=== PATIENT | male | born 1990 | race Two or more races ===

== ENCOUNTER 2019-12-19 15:53 | Emergency (ER) | payer OTHER ==
[2019-12-19 16:02] VITALS: BP 175/105
--- NOTE | 2019-12-19 16:19 | PHYS DOC ---
Past History Past Medical History: Depression Past Surgical History: Other Additional Past Surgical Histo: ACL repair Alcohol Use: None Drug Use: None Adult General Chief Complaint Chief Complaint: FOREIGN BODY HPI HPI 29-year-old male presents with concern of foreign body ingestion. The patient was given a bag of chips when yesterday and thinks it might have broken razor blade in it. He noticed some fine cuts on his fingers after eating the chips and thinks that these cuts were result of the razor blade. There was no razor blade in the bag of chips that he thinks he swallowed it. This happened yesterday evening. Patient had no oral vomiting. He has not been coughing up any blood. He now has some epigastric discomfort and he is very worried about internal bleeding. Review of Systems Review of Systems Constitutional: Denies fever or chills [] Eyes: Denies change in visual acuity, redness, or eye pain [] HENT: Denies nasal congestion or sore throat [] Respiratory: Denies cough or shortness of breath [] Cardiovascular: No additional information not addressed in HPI [] GI: Gastric abdominal pain. Denie nausea, vomiting, bloody stools or diarrhea [] : Denies dysuria or hematuria [] Musculoskeletal: Denies back pain or joint pain [] Integument: Denies rash or skin lesions [] Neurologic: Denies headache, focal weakness or sensory changes [] Endocrine: Denies polyuria or polydipsia [] All other systems were reviewed and found to be within normal limits, except as documented in this note. Allergies Allergies Allergies Coded Allergies Type Severity Reaction Last Updated Verified No Known Drug Allergies 12/19/19 No Physical Exam Physical Exam Constitutional: Well developed, well nourished, no acute distress, non-toxic appearance. [] HENT: Normocephalic, atraumatic, bilateral external ears normal, oropharynx moist, no oral exudates, nose normal. [] Eyes: PERRLA, EOMI, conjunctiva normal, no discharge. [] Neck: Normal range of motion, no tenderness, supple, no stridor. [] Cardiovascular:Heart rate regular rhythm, no murmur [] Lungs & Thorax: Bilateral breath sounds clear to auscultation [] Abdomen: Bowel sounds normal, soft, no tenderness, no masses, no pulsatile masses. [] Skin: Warm, dry, no erythema, no rash. [] Back: No tenderness, no CVA tenderness. [] Extremities: No tenderness, no cyanosis, no clubbing, ROM intact, no edema. [] Neurologic: Alert and oriented X 3, normal motor function, normal sensory function, no focal deficits noted. [] Psychologic: Affect normal, judgement normal, mood nervous. [] Current Patient Data Vital Signs Vital Signs Date Time Temp Pulse Resp B/P (MAP) Pulse Ox O2 Delivery O2 Flow Rate FiO2 12/19/19 16:02 97.7 108 18 98 Room Air EKG EKG [] Radiology/Procedures Radiology/Procedures [] Course & Med Decision Making Course & Med Decision Making Pertinent Labs and Imaging studies reviewed. (See chart for details) The patient's chest x-ray and KUB are negative for radiopaque foreign bodies. I do not believe that he swallowed a razor blade. He is stable for discharge at this time. [] Dragon Disclaimer Dragon Disclaimer This electronic medical record was generated, in whole or in part, using a voice recognition dictation system. Departure Departure: Impression: Primary Impression: Abdominal pain Disposition: HOME, SELF-CARE Condition: STABLE Referrals: PCP,NO (PCP) Patient Instructions: Abdominal Pain, [id number] RAMSEY RICHARDS DO Dec 19, 2019 16:19
--- NOTE | 2019-12-19 16:53 | RAD ---
CHEST PA LATERAL, KUB History: Abdominal pain, bloody stools. Possibly swallowed a razor blade. Comparison: None. Findings: Frontal and lateral views of chest were obtained. The cardiomediastinal silhouette is normal. Pulmonary vasculature is normal. The lungs are clear. No pleural effusion or pneumothorax is seen. There is no acute bone abnormality. Frontal view of the abdomen was obtained. Moderate quantity of stool in the colon is present. No bowel obstruction. No suspicious abdominal calcification. There is no radiopaque foreign body identified within the chest or abdomen corresponding to a razor blade or other suspicious object. IMPRESSION: No acute cardiopulmonary process. No radiopaque foreign body. Electronically signed by: Remi Reid MD (12/19/2019 4:50 PM) [facility]
== END 2019-12-19 17:03 | disposition home or self-care (01) ==
LOC: ER 15:53
DX: R10.13 Epigastric pain (principal); Z71.1 Person with feared health complaint in whom no diagnosis is made; F32.9 Major depressive disorder, single episode, unspecified; Z98.890 Other specified postprocedural states
CPT/HCPCS: 71046; 74018; 99284

== ENCOUNTER 2020-01-01 17:12 | Emergency (ER) | payer OTHER ==
[~2020-01-01] VITALS: Ht 193 cm; Wt 93.2 kg
[2020-01-01 17:20] VITALS: BP 166/74
[2020-01-01] MEDS ORDERED: PRED20TA PO (17:44)
[2020-01-01] MEDS ORDERED: diphenhydrAMINE HCL 25 MG CAPSULE PO ONE (17:45)
[2020-01-01] MEDS ORDERED: predniSONE 20 MG TABLET PO ONE (17:45)
[2020-01-01] MEDS ORDERED: FAMOTIDINE 20 MG TABLET PO ONE (17:45)
--- NOTE | 2020-01-01 17:45 | PHYS DOC ---
Past History Past Medical History: No Pertinent History, Depression Past Surgical History: Other Additional Past Surgical Histo: ACL repair Alcohol Use: None Drug Use: None Adult General Chief Complaint Chief Complaint: SKIN PROBLEM HPI HPI Patient is a 29-year-old male who presents to the emergency department for evaluation. He states that about 60 minutes prior to arrival he ate some chicken, and broke out in a pruritic urticarial rash on his trunk and extremities. He has had similar reactions in the past. He denies any dizziness or lightheadedness, or any shortness of breath. He does not know what he is allergic to. He has no other complaints or symptoms at this time. Review of Systems Review of Systems Constitutional: Denies fever or chills [] Eyes: Denies change in visual acuity, redness, or eye pain [] HENT: Denies nasal congestion or sore throat [] Respiratory: Denies cough or shortness of breath, or voice changes. [] Cardiovascular: No additional information not addressed in HPI [] GI: Denies abdominal pain, nausea, vomiting, bloody stools or diarrhea [] Allergies Allergies Allergies Coded Allergies Type Severity Reaction Last Updated Verified No Known Drug Allergies 12/19/19 No Physical Exam Physical Exam PHYSICAL EXAM: CONSTITUTIONAL: Well developed, well nourished HEAD: normocephalic, atraumatic EENT: PERRL, EOMI. Conjunctivae normal color, sclerae non-icteric; moist mucous membranes. The airway is patent. There is no stridor. Voice is normal. NECK: Supple, non-tender; no meningismus. LUNGS: Lungs CTA, breathing even and unlabored. Normal air movement. HEART: Regular rate and rhythm, no murmur CHEST: No deformity; non-tender ABDOMEN: The abdomen is soft, and non-tender, no masses or bruits. EXTREM: Normal ROM; no deformity, no calf tenderness. Normal pulses palpable in all extremities. There is no pedal edema. SKIN: There is a scattered fine urticarial rash on the upper extremities, and upper trunk, no other rash; no diaphoresis NEURO: Alert; normal speech and cognition; CN's grossly intact; strength grossly intact without focal deficit. BACK: No CVA TTP. Current Patient Data Vital Signs Vital Signs Date Time Temp Pulse Resp B/P (MAP) Pulse Ox O2 Delivery O2 Flow Rate FiO2 01/01/20 17:20 97.8 69 18 166/74 (104) 99 Room Air EKG EKG [] Radiology/Procedures Radiology/Procedures [] Course & Med Decision Making Course & Med Decision Making Discussed home care plan with the patient, the need for close follow-up, and re turn precautions. Ebony Disclaimer Dragon Disclaimer This electronic medical record was generated, in whole or in part, using a voice recognition dictation system. Departure Departure: Impression: Primary Impression: Allergic reaction Disposition: HOME, SELF-CARE Condition: STABLE Patient Instructions: Allergies, Generic Additional Instructions: Take Benadryl 25-50 mg every 6 hours for the next 3 days. Use caution as this may cause sedation. Additionally, take Pepcid AC 10 mg twice daily for the next 3 days. This medicine is available [id number]. Use the prescribed steroids as instructed. Return to medical care for any new, or worsening symptoms, the development of shortness of breath, new rash, dizziness lightheadedness, fevers, or any other new, or concerning symptoms. Scripts Prednisone (PREDNISONE) 20 Mg Tablet 40 MG PO DAILY for - for 5 Days, #10 TAB Prov: JE QUICK MD 01/01/20 EJ QUICK MD Jan 01, 2020 17:45
== END 2020-01-01 17:54 | disposition home or self-care (01) ==
LOC: ER 17:12
DX: T78.1XXA Other adverse food reactions, not elsewhere classified, initial encounter (principal); R21 Rash and other nonspecific skin eruption; F32.9 Major depressive disorder, single episode, unspecified; Z98.890 Other specified postprocedural states; X58.XXXA Exposure to other specified factors, initial encounter
CPT/HCPCS: 99284; J7512; Q0163

== ENCOUNTER 2020-01-24 01:52 | Emergency (ER) | payer OTHER ==
[~2020-01-24] VITALS: Ht 193 cm; Wt 93.2 kg
[2020-01-24 01:52] VITALS: BP 108/62
[~2020-01-24 01:52] MED LIST: PRED20TA PO
[2020-01-24] MEDS ORDERED: ONDANSETRON ODT 4 MG TAB.RAPDIS PO ONE (02:00)
[2020-01-24] MEDS ORDERED: ONDA4TAB12 PO (02:06)
--- NOTE | 2020-01-24 02:07 | PHYS DOC ---
Past History Past Medical History: No Pertinent History, Depression Past Surgical History: Other Additional Past Surgical Histo: ACL repair Alcohol Use: None Drug Use: None Adult General Chief Complaint Chief Complaint: NAUSEA/VOMITING/DIARRHEA HPI HPI 29-year-old male presents from the [facility] with vomiting. The patient was sleeping and he woke up and had an episode of vomiting. He did not want to come to the hospital, but the [facility] wanted him to come here and get something for his vomiting. The patient tells me that he does not want to do la bs and further workup if it's not necessary. He doesn't feel especially bad, just had some vomiting. He denies fever or chills. He denies abdominal pain, diarrhea, chest pain, shortness breath, cough. Review of Systems Review of Systems Constitutional: Denies fever or chills [] Eyes: Denies change in visual acuity, redness, or eye pain [] HENT: Denies nasal congestion or sore throat [] Respiratory: Denies cough or shortness of breath [] Cardiovascular: No additional information not addressed in HPI [] GI: nausea, vomiting. Denies abdominal pain, bloody stools or diarrhea [] : Denies dysuria or hematuria [] Musculoskeletal: Denies back pain or joint pain [] Integument: Denies rash or skin lesions [] Neurologic: Denies headache, focal weakness or sensory changes [] Endocrine: Denies polyuria or polydipsia [] All other systems were reviewed and found to be within normal limits, except as documented in this note. Current Medications Current Medications Current Medications Medications (Trade) Dose Ordered Sig/[facility] Start Time Stop Time Status Last Admin Dose Admin Ondansetron HCl (Zofran Odt) 4 mg 1X ONCE 01/24/20 02:00 01/24/20 02:01 UNV Allergies Allergies Allergies Coded Allergies Type Severity Reaction Last Updated Verified No Known Drug Allergies 12/19/19 No Physical Exam Physical Exam Constitutional: Well developed, well nourished, no acute distress, non-toxic appearance. [] HENT: Normocephalic, atraumatic, bilateral external ears normal, oropharynx moist, no oral exudates, nose normal. [] Eyes: PERRLA, EOMI, conjunctiva normal, no discharge. [] Neck: Normal range of motion, no tenderness, supple, no stridor. [] Cardiovascular: Heart rate regular rhythm, no murmur [] Lungs & Thorax: Bilateral breath sounds clear to auscultation [] Abdomen: Bowel sounds normal, soft, no tenderness, no masses, no pulsatile masses. [] Skin: Warm, dry, no erythema, no rash. [] Back: No tenderness, no CVA tenderness. [] Extremities: No tenderness, no cyanosis, no clubbing, ROM intact, no edema. [] Neurologic: Alert and oriented X 3, normal motor function, normal sensory function, no focal deficits noted. [] Psychologic: Affect normal, judgement normal, mood normal. [] EKG EKG [] Radiology/Procedures Radiology/Procedures [] Course & Med Decision Making Course & Med Decision Making Pertinent Labs and Imaging studies reviewed. (See chart for details) The patient only wants simple treatment for his vomiting. He was reported to have vomited on his clothing and someone at the [facility] is concerned he might have hit his head. He was reported to have a UDS done there that was negative. I will give the patient 4 mg of Zofran ODT and a by mouth challenge of fluids. We offered to do a CT scan of the patient's head and he has declined. He does not believe it's necessary. He denies any headache or altered sensation. He is the patient if he doesn't want a bunch of testing, I don't see evidence that makes it necessary at this time. The patient was able to keep down fluids. He is stable for discharge at this time. [] Dragon Disclaimer Dragon Disclaimer This electronic medical record was generated, in whole or in part, using a voice recognition dictation system. Departure Departure: Impression: Primary Impression: Nausea & vomiting Disposition: HOME, SELF-CARE Condition: STABLE Referrals: PCP,NO (PCP) Patient Instructions: Nausea and Vomiting, [id number] Scripts Ondansetron (ONDANSETRON ODT) 4 Mg Tab.rapdis 1 TAB PO PRN Q6-8HRS PRN for VOMITING, #16 TAB Prov: RAMSEY RICHARDS DO 01/24/20 Problem Qualifiers Primary Impression: Nausea & vomiting Vomiting type: unspecified Vomiting Intractability: non-intractable Qualified Codes: R11.2 - Nausea with vomiting, unspecified RAMSEY RICHARDS DO Jan 24, 2020 02:06
== END 2020-01-24 02:34 | disposition home or self-care (01) ==
LOC: ER 01:52
DX: R11.2 Nausea with vomiting, unspecified (principal)
CPT/HCPCS: 99283; Q0162

== ENCOUNTER 2020-05-04 06:45 | Emergency (ER) | payer SELFPAY ==
[~2020-05-04] VITALS: Ht 182.9 cm; Wt 91.4 kg
[~2020-05-04 06:45] MED LIST changes: +ONDA4TAB12 PO
[2020-05-04] MEDS ORDERED: ONDANSETRON PF 4 MG/2 ML VIAL. ONE (07:00)
[2020-05-04] MEDS ORDERED: IV NORMAL SALINE 1,000ML 1,000 ML IV SCH (07:30)
[2020-05-04] MEDS ORDERED: ONDANSETRON PF 4 MG/2 ML VIAL. IVP ONE (07:30)
[2020-05-04 07:33] LABS: BASO # 0.1 x10^3/uL (0.0-0.2); BASO % 1 % (0-3); EOS # 0.1 x10^3/uL (0.0-0.7); EOS % 2 % (0-3); HEMATOCRIT 47.4 % (39.0-53.0); HEMOGLOBIN 16.1 g/dL (13.0-17.5); LYMPH # 1.4 x10^3/uL (1.0-4.8); LYMPH % 29 % (24-48); MEAN CORPUSCULAR HEMOGLOBIN 30 pg (25-35); MEAN CORPUSCULAR HGB CONC 34 g/dL (31-37); MEAN CORPUSCULAR VOLUME 89 fL (79-100); MONO # 0.7 x10^3/uL (0.0-1.1); MONO % 15 % (0-9); NEUT # 2.6 x10^3uL (1.8-7.7); NEUT % 53 % (31-73); PLATELET COUNT 291 x10^3/uL (140-400); RED BLOOD COUNT 5.33 x10^6/uL (4.30-5.70); RED CELL DISTRIBUTION WIDTH 14.4 % (11.5-14.5); WHITE BLOOD COUNT 4.8 x10^3/uL (4.0-11.0)
[2020-05-04 07:35] LABS: CALCIUM 9.1 mg/dL (8.5-10.1); GFR 88.3; POTASSIUM 4.1 mmol/L (3.5-5.1)
[2020-05-04 07:41] LABS: ALBUMIN/GLOBULIN RATIO 1.3 (1.0-1.7); TOTAL BILIRUBIN 0.7 mg/dL (0.2-1.0); TOTAL PROTEIN 7.2 g/dL (6.4-8.2)
[2020-05-04 07:55] VITALS: BP 133/78
[2020-05-04] MEDS ORDERED: IOHEXOL 300 MG/ML 75 ML VIAL. IV ONE (08:00)
--- NOTE | 2020-05-04 08:12 | PHYS DOC ---
Past History Past Medical History: No Pertinent History, Depression Past Surgical History: Other Additional Past Surgical Histo: ACL repair Alcohol Use: None Drug Use: None General Adult EDM: Chief Complaint: WEAKNESS/GENERALIZED HPI: HPI: Patient is a 29-year-old male who presents with complaint of upper abdominal pain that started a few days ago. Patient states that since that time he has had difficulty eating because every time he tries to eat he gets sick to his stomach and develops pain in the epigastric region. He states that nothing has been improving the pain. He states that symptoms are worsened with eating. He denies any fever. He denies any radiation of the pain. He has had no chest pain or shortness of breath. He also denies cough. Patient rates pain at an 8 out of 10. [] Review of Systems: Review of Systems: Constitutional: Denies fever or chills Respiratory: Denies cough or shortness of breath Cardiovascular: Denies chest pain or edema GI: Complains of upper abdominal pain with nausea and vomiting. Denies diarrhea Neurologic: Denies headache, focal weakness or sensory changes A full 10 point review of systems has been reviewed and is otherwise negative. Heart Score: Risk Factors: Risk Factors: DM, Current or recent (<one month) smoker, HTN, HLP, family history of CAD, obesity. Risk Scores: Score 0 - 3: 2.5% MACE over next 6 weeks - Discharge Home Score 4 - 6: 20.3% MACE over next 6 weeks - Admit for Clinical Observation Score 7 - 10: 72.7% MACE over next 6 weeks - Early Invasive Strategies Current Medications: Current Meds: Current Medications Medications (Trade) Dose Ordered Sig/[facility] Start Time Stop Time Status Last Admin Dose Admin Iohexol (Omnipaque 300 Mg/ml) 75 ml 1X ONCE 05/04/20 08:00 05/04/20 08:08 DC Ondansetron HCl (Zofran) 4 mg STK-MED ONCE 05/04/20 07:00 05/04/20 07:00 DC Sodium Chloride 1,000 ml @ 1,000 mls/hr Q1H 05/04/20 07:30 05/04/20 08:29 05/04/20 07:19 1,000 MLS/HR Allergies: Allergies: Allergies Coded Allergies Type Severity Reaction Last Updated Verified No Known Drug Allergies 1/20/20 No Physical Exam: PE: Constitutional: Well developed, well nourished, no acute distress, non-toxic appearance. [] HENT: Normocephalic, atraumatic, bilateral external ears normal, oropharynx moist, no oral exudates, nose normal. [] Eyes: PERRLA, EOMI, conjunctiva normal, no discharge. [] Neck: Normal range of motion, no tenderness, supple. [] Cardiovascular: Regular rate and rhythm [] Lungs & Thorax: Bilateral breath sounds clear to auscultation [] Abdomen: Bowel sounds normal, soft, with mild epigastric tenderness. [] Skin: Warm, dry, no erythema, no rash. [] Extremities: No tenderness, no cyanosis, no clubbing, ROM intact, no edema. [] Neurologic: Alert and oriented X 3, no focal deficits noted. [] Current Patient Data: Labs: Laboratory Tests Test 05/04/20 07:00 White Blood Count 4.8 x10^3/uL (4.0-11.0) Red Blood Count 5.33 x10^6/uL (4.30-5.70) Hemoglobin 16.1 g/dL (13.0-17.5) Hematocrit 47.4 % (39.0-53.0) Mean Corpuscular Volume 89 fL (79-100) Mean Corpuscular Hemoglobin 30 pg (25-35) Mean Corpuscular Hemoglobin Concent 34 g/dL (31-37) Red Cell Distribution Width 14.4 % (11.5-14.5) Platelet Count 291 x10^3/uL (140-400) Neutrophils (%) (Auto) 53 % (31-73) Lymphocytes (%) (Auto) 29 % (24-48) Monocytes (%) (Auto) 15 % (0-9) H Eosinophils (%) (Auto) 2 % (0-3) Basophils (%) (Auto) 1 % (0-3) Neutrophils # (Auto) 2.6 x10^3uL (1.8-7.7) Lymphocytes # (Auto) 1.4 x10^3/uL (1.0-4.8) Monocytes # (Auto) 0.7 x10^3/uL (0.0-1.1) Eosinophils # (Auto) 0.1 x10^3/uL (0.0-0.7) Basophils # (Auto) 0.1 x10^3/uL (0.0-0.2) Sodium Level 136 mmol/L (136-145) Potassium Level 4.1 mmol/L (3.5-5.1) Chloride Level 100 mmol/L (98-107) Carbon Dioxide Level 30 mmol/L (21-32) Anion Gap 6 (6-14) Blood Urea Nitrogen 9 mg/dL (8-26) Creatinine 1.0 mg/dL (0.7-1.3) Estimated GFR (Cockcroft-Gault) 88.3 BUN/Creatinine Ratio 9 (6-20) Glucose Level 121 mg/dL (70-99) H Calcium Level 9.1 mg/dL (8.5-10.1) Total Bilirubin 0.7 mg/dL (0.2-1.0) Aspartate Amino Transferase (AST) 211 U/L (15-37) H Alanine Aminotransferase (ALT) 71 U/L (16-63) H Alkaline Phosphatase 72 U/L (46-116) Total Protein 7.2 g/dL (6.4-8.2) Albumin 4.0 g/dL (3.4-5.0) Albumin/Globulin Ratio 1.3 (1.0-1.7) Lipase 95 U/L (73-393) Vital Signs: Vital Signs Date Time Temp Pulse Resp B/P (MAP) Pulse Ox O2 Delivery O2 Flow Rate FiO2 05/04/20 07:55 62 16 133/78 (96) 96 Room Air 05/04/20 06:54 97.3 EKG: EKG: [] Radiology/Procedures: Radiology/Procedures: [] Impressions: PROCEDURE: CT ABD PELV W/ IV CONTRST ONLY PQRS Compliance Statement: One or more of the following individualized dose reduction techniques were utilized for this examination: 1. Automated exposure control 2. Adjustment of the mA and/or kV according to patient size 3. Use of iterative reconstruction technique CT abdomen/pelvis with contrast 05/04/2020 7:48 AM INDICATION: Abdominal pain COMPARISON: None available TECHNIQUE: Multiple axial CT images of the abdomen and pelvis were obtained after the intravenous administration of nonionic contrast. Coronal and sagittal reformats are provided. FINDINGS: Lung bases are clear. Heart size within normal limits. Hypoattenuation along the fissure of the ligamentum teres is suggestive of focal fatty infiltration. Otherwise, the liver is normal. Spleen, bilateral adrenal glands, pancreas and gallbladder are normal in appearance. Abdominal aorta is normal in course and caliber. No pathologically enlarged lymph nodes are identified. Simple superior pole right renal cyst measures 1.6 cm. No suspicious renal mass. No hydronephrosis. Small and large bowel are normal in caliber. There is no evidence for bowel obstruction. There are no pericolonic inflammatory changes. A normal, nondilated appendix is visualized without adjacent inflammatory changes. Prostate seminal vesicles are normal in appearance. Urinary bladder is within normal limits given degree of distention. Small fat-containing left inguinal hernia. Right central disc extrusion is identified at L5-S1 with mild narrowing of the right lateral recess. IMPRESSION: 1. No acute abnormalities identified in abdomen and pelvis. 2. Right central disc extrusion at L5-S1 with mild narrowing of the right lateral recess. Electronically signed by: Sonido Alfaro MD (05/04/2020 8:45 AM) [id number] DICTATED AND SIGNED BY: SONIDO ALFARO MD DATE: 05/04/20844 CC: BRADLEY TREVINO Jr. DO; PCP,NO ~ Course & Med Decision Making: Course & Med Decision Making Pertinent Labs and Imaging studies reviewed. (See chart for details) [] Dragon Disclaimer: Ebony Disclaimer: This electronic medical record was generated, in whole or in part, using a voice recognition dictation system. Departure Departure: Impression: Primary Impression: Abdominal pain Qualified Codes: R10.13 - Epigastric pain Disposition: 01 HOME/RESIDENCE PRIOR TO ADM Condition: STABLE Referrals: PCP,NO (PCP) Patient Instructions: Abdominal Pain Scripts Famotidine (PEPCID) 20 Mg Tablet 1 TAB PO BID PRN for acid indigestion, #30 TAB Prov: BRADLEY TREVINO Jr. DO 05/04/20 Ondansetron (ONDANSETRON ODT) 4 Mg Tab.rapdis 1 TAB PO PRN Q6-8HRS PRN for NAUSEA, #12 TAB Prov: BRADLEY TREVINO Jr. DO 05/04/20 BRADLEY TREVINO Jr., DO May 04, 2020 08:12
--- NOTE | 2020-05-04 08:48 | RAD ---
PQRS Compliance Statement: One or more of the following individualized dose reduction techniques were utilized for this examination: 1. Automated exposure control 2. Adjustment of the mA and/or kV according to patient size 3. Use of iterative reconstruction technique CT abdomen/pelvis with contrast 05/04/2020 7:48 AM INDICATION: Abdominal pain COMPARISON: None available TECHNIQUE: Multiple axial CT images of the abdomen and pelvis were obtained after the intravenous administration of nonionic contrast. Coronal and sagittal reformats are provided. FINDINGS: Lung bases are clear. Heart size within normal limits. Hypoattenuation along the fissure of the ligamentum teres is suggestive of focal fatty infiltration. Otherwise, the liver is normal. Spleen, bilateral adrenal glands, pancreas and gallbladder are normal in appearance. Abdominal aorta is normal in course and caliber. No pathologically enlarged lymph nodes are identified. Simple superior pole right renal cyst measures 1.6 cm. No suspicious renal mass. No hydronephrosis. Small and large bowel are normal in caliber. There is no evidence for bowel obstruction. There are no pericolonic inflammatory changes. A normal, nondilated appendix is visualized without adjacent inflammatory changes. Prostate seminal vesicles are normal in appearance. Urinary bladder is within normal limits given degree of distention. Small fat-containing left inguinal hernia. Right central disc extrusion is identified at L5-S1 with mild narrowing of the right lateral recess. IMPRESSION: 1. No acute abnormalities identified in abdomen and pelvis. 2. Right central disc extrusion at L5-S1 with mild narrowing of the right lateral recess. Electronically signed by: Bernadette Alfaro MD (05/04/2020 8:45 AM) [id number]
[2020-05-04] MEDS ORDERED: FAMO-63 PO (08:54)
[2020-05-04] MEDS ORDERED: ONDA4TAB12 PO (08:54)
== END 2020-05-04 09:50 | disposition home or self-care (01) ==
LOC: ER 06:45
DX: R10.13 Epigastric pain (principal); R11.2 Nausea with vomiting, unspecified
CPT/HCPCS: 36415; 74177; 80053; 83690; 85025; 96361; 96374; 99285; J2405; J7030

== ENCOUNTER 2020-05-05 11:31 | Emergency (ER) | payer SELFPAY ==
[~2020-05-05] VITALS: Ht 182.9 cm; Wt 91.4 kg
[~2020-05-05 11:31] MED LIST changes: +FAMO-63 PO
[2020-05-05 11:47] VITALS: BP 147/97
[2020-05-05] MEDS ORDERED: IV NORMAL SALINE 1,000ML 1,000 ML IV SCH (11:49)
[2020-05-05] MEDS ORDERED: FAMOTIDINE 20 MG/2 ML VIAL IVP ONE (12:00)
[2020-05-05] MEDS ORDERED: ONDANSETRON PF 4 MG/2 ML VIAL. IVP ONE (12:00)
[2020-05-05] MEDS ORDERED: LIDO:MAALOX 1:1 20 ML SINGLE DOSE. PO ONE (12:00)
[2020-05-05 12:18] LABS: BASO % 1 % (0-3); EOS # 0.1 x10^3/uL (0.0-0.7); EOS % 2 % (0-3); HEMOGLOBIN 15.3 g/dL (13.0-17.5); LYMPH # 1.4 x10^3/uL (1.0-4.8); LYMPH % 30 % (24-48); MEAN CORPUSCULAR HEMOGLOBIN 31 pg (25-35); MEAN CORPUSCULAR HGB CONC 34 g/dL (31-37); MEAN CORPUSCULAR VOLUME 90 fL (79-100); MONO # 0.6 x10^3/uL (0.0-1.1); MONO % 12 % (0-9); NEUT # 2.6 x10^3uL (1.8-7.7); NEUT % 55 % (31-73); PLATELET COUNT 285 x10^3/uL (140-400); RED BLOOD COUNT 5.02 x10^6/uL (4.30-5.70); RED CELL DISTRIBUTION WIDTH 14.4 % (11.5-14.5); WHITE BLOOD COUNT 4.7 x10^3/uL (4.0-11.0)
[2020-05-05 12:22] LABS: CALCIUM 8.8 mg/dL (8.5-10.1); CREATININE 0.9 mg/dL (0.7-1.3); GFR 99.8; POTASSIUM 3.9 mmol/L (3.5-5.1)
[2020-05-05 12:28] LABS: ALBUMIN 3.8 g/dL (3.4-5.0); ALBUMIN/GLOBULIN RATIO 1.3 (1.0-1.7); TOTAL BILIRUBIN 0.5 mg/dL (0.2-1.0); TOTAL PROTEIN 6.8 g/dL (6.4-8.2)
--- NOTE | 2020-05-05 12:43 | PHYS DOC ---
Past History Past Medical History: No Pertinent History, Depression Past Surgical History: Other Additional Past Surgical Histo: ACL repair Alcohol Use: None Drug Use: None General Adult EDM: Chief Complaint: MULTIPLE COMPLAINTS HPI: HPI: Patient is a 29-year-old male who presents with complaint of continued upper abdominal pain. Patient was seen here for same complaint yesterday and reports that he has not seen any improvement in the pain. Patient does admit that he has not gone and filled his prescriptions at this time. Patient states that he has had some nausea but no vomiting. He denies any diarrhea. Patient rates pain is moderate. [] Review of Systems: Review of Systems: Constitutional: Denies fever or chills Respiratory: Denies cough or shortness of breath Cardiovascular: Denies chest pain or edema GI: Complains of upper abdominal pain without vomiting or diarrhea Neurologic: Denies headache, focal weakness or sensory changes A full 10 point review of systems has been reviewed and is otherwise negative. Heart Score: Risk Factors: Risk Factors: DM, Current or recent (<one month) smoker, HTN, HLP, family history of CAD, obesity. Risk Scores: Score 0 - 3: 2.5% MACE over next 6 weeks - Discharge Home Score 4 - 6: 20.3% MACE over next 6 weeks - Admit for Clinical Observation Score 7 - 10: 72.7% MACE over next 6 weeks - Early Invasive Strategies Current Medications: Current Meds: Current Medications Medications (Trade) Dose Ordered Sig/[facility] Start Time Stop Time Status Last Admin Dose Admin Famotidine (Pepcid Vial) 20 mg 1X ONCE 05/05/20 12:00 05/05/20 12:04 DC 05/05/20 12:00 20 MG Multi-Ingredient Mouthwash/Gargle (Gi Cocktail) 20 ml 1X ONCE 05/05/20 12:00 05/05/20 12:04 DC 05/05/20 12:00 20 ML Ondansetron HCl (Zofran) 4 mg 1X ONCE 05/05/20 12:00 05/05/20 12:04 DC 05/05/20 12:00 4 MG Sodium Chloride 1,000 ml @ 1,000 mls/hr Q1H 05/05/20 11:49 05/05/20 12:48 05/05/20 11:49 1,000 MLS/HR Allergies: Allergies: Allergies Coded Allergies Type Severity Reaction Last Updated Verified No Known Drug Allergies 12/19/19 No Physical Exam: PE: Constitutional: Well developed, well nourished, no acute distress, non-toxic appearance. [] HENT: Normocephalic, atraumatic, bilateral external ears normal, oropharynx moist, no oral exudates, nose normal. [] Eyes: PERRLA, EOMI, conjunctiva normal, no discharge. [] Neck: Normal range of motion, no tenderness, supple, no stridor. [] Cardiovascular: Regular rate and rhythm [] Lungs & Thorax: Bilateral breath sounds clear to auscultation [] Abdomen: Bowel sounds normal, soft, with mild epigastric tenderness. [] Skin: Warm, dry, no erythema, no rash. [] Extremities: No tenderness, no cyanosis, no clubbing, ROM intact, no edema. [] Neurologic: Alert and oriented X 3, no focal deficits noted. [] Current Patient Data: Labs: Laboratory Tests Test 05/05/20 12:05 White Blood Count 4.7 x10^3/uL (4.0-11.0) Red Blood Count 5.02 x10^6/uL (4.30-5.70) Hemoglobin 15.3 g/dL (13.0-17.5) Hematocrit 45.0 % (39.0-53.0) Mean Corpuscular Volume 90 fL (79-100) Mean Corpuscular Hemoglobin 31 pg (25-35) Mean Corpuscular Hemoglobin Concent 34 g/dL (31-37) Red Cell Distribution Width 14.4 % (11.5-14.5) Platelet Count 285 x10^3/uL (140-400) Neutrophils (%) (Auto) 55 % (31-73) Lymphocytes (%) (Auto) 30 % (24-48) Monocytes (%) (Auto) 12 % (0-9) H Eosinophils (%) (Auto) 2 % (0-3) Basophils (%) (Auto) 1 % (0-3) Neutrophils # (Auto) 2.6 x10^3uL (1.8-7.7) Lymphocytes # (Auto) 1.4 x10^3/uL (1.0-4.8) Monocytes # (Auto) 0.6 x10^3/uL (0.0-1.1) Eosinophils # (Auto) 0.1 x10^3/uL (0.0-0.7) Basophils # (Auto) 0.0 x10^3/uL (0.0-0.2) Sodium Level 139 mmol/L (136-145) Potassium Level 3.9 mmol/L (3.5-5.1) Chloride Level 102 mmol/L (98-107) Carbon Dioxide Level 30 mmol/L (21-32) Anion Gap 7 (6-14) Blood Urea Nitrogen 6 mg/dL (8-26) L Creatinine 0.9 mg/dL (0.7-1.3) Estimated GFR (Cockcroft-Gault) 99.8 BUN/Creatinine Ratio 7 (6-20) Glucose Level 104 mg/dL (70-99) H Calcium Level 8.8 mg/dL (8.5-10.1) Total Bilirubin 0.5 mg/dL (0.2-1.0) Aspartate Amino Transferase (AST) 198 U/L (15-37) H Alanine Aminotransferase (ALT) 76 U/L (16-63) H Alkaline Phosphatase 67 U/L (46-116) Total Protein 6.8 g/dL (6.4-8.2) Albumin 3.8 g/dL (3.4-5.0) Albumin/Globulin Ratio 1.3 (1.0-1.7) Lipase 87 U/L (73-393) Vital Signs: Vital Signs Date Time Temp Pulse Resp B/P (MAP) Pulse Ox O2 Delivery O2 Flow Rate FiO2 05/05/20 11:47 98.5 79 18 147/97 (114) 97 Room Air EKG: EKG: [] Radiology/Procedures: Radiology/Procedures: [] Course & Med Decision Making: Course & Med Decision Making Pertinent Labs and Imaging studies reviewed. (See chart for details) [] Dragon Disclaimer: Dragon Disclaimer: This electronic medical record was generated, in whole or in part, using a voice recognition dictation system. Departure Departure: Impression: Primary Impression: Upper abdominal pain Disposition: HOME/RESIDENCE PRIOR TO ADM Condition: STABLE Referrals: PCP,NO (PCP) Patient Instructions: Abdominal Pain Additional Instructions: Fill prescriptions that were prescribed yesterday and take as directed. Follow- up with primary care provider for further evaluation and management. Justification of Admission: Justification of Admission: Justification of Admission Dx: N/A BRADLEY TREVINO Jr. DO May 05, 2020 12:43
== END 2020-05-05 12:55 | disposition home or self-care (01) ==
LOC: ER 11:31
DX: R10.10 Upper abdominal pain, unspecified (principal); R10.13 Epigastric pain; R11.0 Nausea
CPT/HCPCS: 36415; 80053; 83690; 85025; 96374; 96375; 99284; J2405; J3490; J7030

== ENCOUNTER 2020-05-08 14:12 | Emergency (ER) | payer SELFPAY ==
[~2020-05-08] VITALS: Ht 182.9 cm; Wt 94.6 kg
[2020-05-08] MEDS ORDERED: IV NORMAL SALINE 1,000ML 1,000 ML IV SCH (14:25)
--- NOTE | 2020-05-08 14:55 | PHYS DOC ---
Past History Past Medical History: No Pertinent History, Depression Past Surgical History: Other Additional Past Surgical Histo: ACL repair Alcohol Use: None Drug Use: None General Adult EDM: Chief Complaint: ABDOMINAL PAIN HPI: HPI: Patient is a 29-year-old male who presents to the emergency department for ev aluation. He states that he was seen in the emergency department here 4 days ago for abdominal pain, and vomiting. He states his vomiting has stopped, but he is now having constipation and has not had a bowel movement in a few days. He reports intermittent abdominal cramps and feels that he is dehydrated. He has not had any fevers or chills. He has not had any dizziness or lig htheadedness. There are no alleviating or exacerbating factors to his symptoms otherwise. Notes and imaging tests, and lab results from his recent ER visit have been reviewed. Incidentally, the patient has tested positive for COVID-19, approximately 5 wee ks ago, but reportedly has recovered. Review of Systems: Review of Systems: Constitutional: Denies fever or chills Eyes: Denies change in visual acuity HENT: Denies nasal congestion or sore throat Respiratory: Denies cough or shortness of breath Cardiovascular: Denies chest pain or edema GI: Denies bloody stools or diarrhea : Denies dysuria Musculoskeletal: Denies back pain or joint pain Integument: Denies rash Neurologic: Denies headache, focal weakness or sensory changes Endocrine: Denies polyuria or polydipsia Lymphatic: Denies swollen glands Psychiatric: Denies depression or anxiety Heart Score: Risk Factors: Risk Factors: DM, Current or recent (<one month) smoker, HTN, HLP, family history of CAD, obesity. Risk Scores: Score 0 - 3: 2.5% MACE over next 6 weeks - Discharge Home Score 4 - 6: 20.3% MACE over next 6 weeks - Admit for Clinical Observation Score 7 - 10: 72.7% MACE over next 6 weeks - Early Invasive Strategies Current Medications: Current Meds: Current Medications Medications (Trade) Dose Ordered Sig/[facility] Start Time Stop Time Status Last Admin Dose Admin Sodium Chloride 1,000 ml @ 1,000 mls/hr Q1H 05/08/20 14:25 05/08/20 15:24 Allergies: Allergies: Allergies Coded Allergies Type Severity Reaction Last Updated Verified No Known Drug Allergies 12/19/19 No Physical Exam: PE: PHYSICAL EXAM: CONSTITUTIONAL: Well developed, well nourished HEAD: normocephalic, atraumatic EENT: PERRL, EOMI. Conjunctivae normal color, sclerae non-icteric; moist mucous membranes. NECK: Supple, non-tender; no meningismus. LUNGS: Lungs CTA, breathing even and unlabored. Normal air movement. HEART: Regular rate and rhythm, no murmur CHEST: No deformity; non-tender ABDOMEN: The abdomen is soft, there is very mild left lower abdominal tenderness to palpation without rebound or guarding, the remainder the abdomen is soft and non-tender, no masses or bruits. Normal bowel sounds are present. EXTREM: Normal ROM; no deformity, no calf tenderness. Normal pulses palpable in all extremities. There is no pedal edema. SKIN: No rash; no diaphoresis NEURO: Alert; normal speech and cognition; CN's grossly intact; strength grossly intact without focal deficit. BACK: No CVA TTP. GENITOURINARY: Normal external genitalia. There are no palpable hernias, testicular tenderness is absent. Current Patient Data: Labs: Laboratory Tests Test 05/08/20 14:30 05/08/20 15:00 White Blood Count 7.4 x10^3/uL Red Blood Count 5.20 x10^6/uL Hemoglobin 15.9 g/dL Hematocrit 46.0 % Mean Corpuscular Volume 89 fL Mean Corpuscular Hemoglobin 31 pg Mean Corpuscular Hemoglobin Concent 35 g/dL Red Cell Distribution Width 14.2 % Platelet Count 323 x10^3/uL Neutrophils (%) (Auto) 66 % Lymphocytes (%) (Auto) 22 % Monocytes (%) (Auto) 11 % Eosinophils (%) (Auto) 1 % Basophils (%) (Auto) 1 % Neutrophils # (Auto) 4.8 x10^3uL Lymphocytes # (Auto) 1.6 x10^3/uL Monocytes # (Auto) 0.8 x10^3/uL Eosinophils # (Auto) 0.0 x10^3/uL Basophils # (Auto) 0.1 x10^3/uL Sodium Level 137 mmol/L Potassium Level 3.3 mmol/L Chloride Level 99 mmol/L Carbon Dioxide Level 27 mmol/L Anion Gap 11 Blood Urea Nitrogen 12 mg/dL Creatinine 1.0 mg/dL Estimated GFR (Cockcroft-Gault) 88.3 BUN/Creatinine Ratio 12 Glucose Level 105 mg/dL Calcium Level 9.7 mg/dL Total Bilirubin 0.7 mg/dL Aspartate Amino Transf (AST/SGOT) 58 U/L Alanine Aminotransferase (ALT/SGPT) 61 U/L Alkaline Phosphatase 71 U/L Total Protein 7.4 g/dL Albumin 4.3 g/dL Albumin/Globulin Ratio 1.4 Lipase 72 U/L Urine Collection Type Unknown Urine Color Yellow Urine Clarity Clear Urine pH 6.0 Urine Specific [place] 1.025 Urine Protein 30 mg/dl Urine Glucose (UA) Neg mg/dL Urine Ketones (Stick) 15 mg/dL Urine Blood Neg Urine Nitrite Neg Urine Bilirubin Neg Urine Urobilinogen Dipstick 0.2 mg/dL Urine Leukocyte Esterase Neg Urine RBC Rare /HPF Urine WBC 0 /HPF Urine Squamous Epithelial Cells Few /LPF Urine Bacteria Few /HPF Urine Mucus Slight /LPF Current Medications Medications (Trade) Dose Ordered Sig/[facility]in Route PRN Reason Start Time Stop Time Status Last Admin Dose Admin Sodium Chloride 1,000 ml @ 1,000 mls/hr Q1H IV 05/08/20 14:25 05/08/20 15:24 DC 05/08/20 15:02 Potassium Chloride (Klor-Con) 20 meq 1X ONCE PO 05/08/20 16:30 05/08/20 16:31 EKG: EKG: [] Radiology/Procedures: Radiology/Procedures: PROCEDURE: ACUTE ABDOMEN SERIES Examination: ACUTE ABDOMEN SERIES History: Reason: abd pain, constipation / Spl. Instructions: / History: Comparison/Correlation: None Findings: Frontal view of the chest was obtained. Supine and upright views of the abdomen were provided. Heart size and pulmonary vessels are normal. No infiltrate or pleural effusion. No pneumothorax. There is no extraluminal gas. Small amount of stool is present in the colon. No obstruction. No suspicious abdominal or pelvic calcification is present. Bony structures are unremarkable. Impression: No infiltrate. Normal bowel gas pattern. [] Course & Med Decision Making: Course & Med Decision Making Pertinent Labs and Imaging studies reviewed. (See chart for details) [] 4:00 PM: Patient remains stable. I discussed test results, the need for close follow-up, and return precautions. Discussed use of [id number] laxatives, and GI follow-up as an outpatient. Dragon Disclaimer: Dragon Disclaimer: This electronic medical record was generated, in whole or in part, using a voice recognition dictation system. Departure Departure: Impression: Primary Impression: Abdominal pain Disposition: 01 HOME/RESIDENCE PRIOR TO ADM Condition: STABLE Referrals: KB RIVERS MD Patient Instructions: Abdominal Pain, Constipation, Adult Scripts Dicyclomine Hcl (DICYCLOMINE HCL) 20 Mg Tablet 1 TAB PO QID PRN for Stomach Cramping, #20 TAB Prov: JE QUICK MD 05/08/20 Justification of Admission: Justification of Admission: Justification of Admission Dx: N/A JE QUICK MD May 08, 2020 14:55
[2020-05-08 14:57] LABS: BASO # 0.1 x10^3/uL (0.0-0.2); BASO % 1 % (0-3); EOS % 1 % (0-3); HEMOGLOBIN 15.9 g/dL (13.0-17.5); LYMPH # 1.6 x10^3/uL (1.0-4.8); LYMPH % 22 % (24-48); MEAN CORPUSCULAR HEMOGLOBIN 31 pg (25-35); MEAN CORPUSCULAR HGB CONC 35 g/dL (31-37); MEAN CORPUSCULAR VOLUME 89 fL (79-100); MONO # 0.8 x10^3/uL (0.0-1.1); MONO % 11 % (0-9); NEUT # 4.8 x10^3uL (1.8-7.7); NEUT % 66 % (31-73); PLATELET COUNT 323 x10^3/uL (140-400); RED CELL DISTRIBUTION WIDTH 14.2 % (11.5-14.5); WHITE BLOOD COUNT 7.4 x10^3/uL (4.0-11.0)
--- NOTE | 2020-05-08 14:59 | RAD ---
Examination: ACUTE ABDOMEN SERIES History: Reason: abd pain, constipation / Spl. Instructions: / History: Comparison/Correlation: None Findings: Frontal view of the chest was obtained. Supine and upright views of the abdomen were provided. Heart size and pulmonary vessels are normal. No infiltrate or pleural effusion. No pneumothorax. There is no extraluminal gas. Small amount of stool is present in the colon. No obstruction. No suspicious abdominal or pelvic calcification is present. Bony structures are unremarkable. Impression: No infiltrate. Normal bowel gas pattern. Electronically signed by: Remi Reid MD (05/08/2020 2:56 PM) [id number]
[2020-05-08 15:04] LABS: CALCIUM 9.7 mg/dL (8.5-10.1); GFR 88.3; POTASSIUM 3.3 mmol/L (3.5-5.1)
[2020-05-08 15:10] LABS: ALBUMIN 4.3 g/dL (3.4-5.0); ALBUMIN/GLOBULIN RATIO 1.4 (1.0-1.7); TOTAL BILIRUBIN 0.7 mg/dL (0.2-1.0); TOTAL PROTEIN 7.4 g/dL (6.4-8.2)
[2020-05-08 15:34] LABS: CLARITY,URINE CLEAR; COLOR,URINE YELLOW
[2020-05-08 15:35] LABS: BILIRUBIN,URINE NEG (NEG); GLUCOSE,URINE NEG (NEG); UROBILINOGEN,URINE 0.2 mg/dL (0.2 mg/dL)
[2020-05-08 15:36] LABS: NITRITE,URINE NEG (NEG)
[2020-05-08 15:37] LABS: BACTERIA,URINE FEW /HPF (0-FEW); RBC,URINE RARE /HPF (0-2); SQUAMOUS EPITHELIAL CELL,UR FEW /LPF; WBC,URINE 0 /HPF (0-4)
[2020-05-08 16:04] VITALS: BP 157/105
[2020-05-08] MEDS ORDERED: DICY20TA3 PO (16:04)
[2020-05-08] MEDS ORDERED: POTASSIUM CHLORIDE 20 MEQ TABLET.ER. PO ONE (16:30)
== END 2020-05-08 16:10 | disposition home or self-care (01) ==
LOC: ER 14:12
DX: R10.32 Left lower quadrant pain (principal); K59.00 Constipation, unspecified; R11.10 Vomiting, unspecified
CPT/HCPCS: 36415; 74022; 80053; 81001; 83690; 85025; 96360; 99284-25; J7030